=== PATIENT | male | born 1985 | race Caucasian/White ===

== ENCOUNTER 2020-10-01 11:40 | Emergency (ER) | payer SELFPAY ==
[2020-10-01 12:13] LABS: #Eosinphils 0.4 thou/uL (0.0-0.7); #Lymphocytes 1.1 thou/uL (1.20-3.40); #Monocytes 0.6 thou/uL (0.11-0.59); #Neutrophils 6.4 thou/uL (1.40-6.50); %Basophils 0.2 % (0.0-1.0); %Eosinophils 4.9 % (0.0-10.0); %Lymphocytes 13.2 % (21.0-51.0); %Monocytes 7.2 % (0.0-10.0); %Neutrophils 74.6 % (42.0-75.0); Hemoglobin 10.7 g/dL (14.0-18.0); Mean Corpuscular HGB CONC 32.6 g/dL (32.0-36.0); Mean Corpuscular Hemoglobin 26.7 pg (27.0-31.0); Mean Corpuscular Volume 81.8 fL (78.0-98.0); Mean Platelet Volume 7.8 fL (7.4-10.4); Platelet Count 354 thou/uL (130-400); RBC Distribution Width 15.4 % (11.5-14.5); Red Blood Cell (RBC) Count 4.01 mill/uL (4.70-6.10); White Blood Cell (WBC) Count 8.6 thou/uL (4.8-10.8)
--- NOTE | 2020-10-01 12:13 | RAD ---
EXAM: Single view of the chest HISTORY: Chest pain COMPARISON: None FINDINGS: Single view of the chest shows a normal sized cardiomediastinal silhouette. There is no petrona dence of consolidation, mass, or pleural effusion. There is remote right lateral rib fracture. A healed left clavicle fracture is seen. IMPRESSION: No evidence of acute cardiopulmonary disease
--- NOTE | 2020-10-01 12:20 | CT ---
CT HEAD WITHOUT IV CONTRAST COMPARISON: None HISTORY: Injury after fall. Wound on head reportedly more remote in origin. TECHNIQUE: Axial CT imaging at 5 mm intervals from vertex through skull base without contrast FINDINGS: Mild cerebral and cerebellar volume loss more than expected for patient's age. There is no evidence o f an acute infarction, hemorrhage, mass effect, or midline shift. The ventricular system is normal in size, shape, and position. Skull base has a normal CT appearance. Visualized paranasal sinuses are clear. Osseous structures appear intact.Mild scalp soft tissue swelling is seen right anterolateral frontal region as well as in the posterior parietal region. IMPRESSION: 1. No acute intracranial abnormality demonstrated. 2. Scalp soft tissue swelling right anterolateral frontal region and biparietal region. 3. Mild cerebral and cerebellar volume loss more than expected for patient's age.
--- NOTE | 2020-10-01 12:24 | CT ---
CT CERVICAL SPINE NONCONTRAST: DATE: 10/01/2020 HISTORY: cervical trauma: 35-year-old male status post fall. FINDINGS: There are no jumped or perched facets. There is no evidence of acute fracture. The vertebral body hei ghts are maintained. There is no prevertebral soft tissue swelling. Ankylosis of the vertebral bodies and posterior elements including facet joints and spinous processes, of C3 and C4. Moderate de generative disc disease at C2-3. Severe degenerative disc disease at C4-5, with severe central spinal canal stenosis and severe right and moderate to severe left neural foraminal stenosis. IMPRESSION: 1. No evidence of acute fracture or acute traumatic subluxation. 2. 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 3. Due to the immobility at C3-4, there is advanced degenerative disc disease at levels superior and inferior to it, (C2-3 and especially C4-5 where there is severe central and neural foraminal stenosis).
[2020-10-01 12:50] LABS: Acetaminophen Less than 6.0 mcg/mL (10.0-30.0); Alcohol Less than 10 mg/dL (Less than 10); Salicylate Less than 8.0 mg/dL (15.0-30.0)
[2020-10-01 12:52] LABS: ALT (SGPT) 16 U/L (8-55); AST (SGOT) 14 U/L (5-34); Albumin 3.9 g/dL (3.5-5.0); Alkaline Phosphatase 82 U/L (40-110); Anion Gap 12 mmol/L (10-20); BUN (Urea Nitrogen) 22 mg/dL (8.9-20.6); Bilirubin, Total 0.2 mg/dL (0.2-1.2); Calc. Creatinine Clearance 0 mL/min (70-130); Calcium 8.6 mg/dL (7.8-10.44); Carbon Dioxide 25 mmol/L (22-29); Chloride 107 mmol/L (98-107); Globulin 2.9 g/dL (2.4-3.5); Glucose 93 mg/dL (70-105); Potassium 3.9 mmol/L (3.5-5.1); Protein, Total 6.8 g/dL (6.0-8.3); Sodium 140 mmol/L (136-145)
[2020-10-01 13:19] LABS: Bilirubin Negative (Negative); Blood, Urine Negative (Negative); Clarity Clear (Clear); Glucose, Urine (Dipstick) Normal (Negative); Ketone, Urine Negative (Negative); Leukocyte Negative Leu/uL (Negative); Nitrite Negative (Negative); Protein, Urine (Dipstick) Negative (Neg-Trace); Specific Gravity, Urine 1.025 (1.002-1.036); Urobilinogen Normal mg/dL (Less than 2)
[2020-10-01 13:28] LABS: Amphetamine Not Detected (NotDetected); Barbiturates Screen Not Detected (NotDetected); Cocaine Metabolite Screen Not Detected (NotDetected); Medtox Control Line Valid? VALID (VALID); Medtox Reader # READER 1; Methadone Not Detected (NotDetected); Methamphetamine Not Detected (NotDetected); Opiate Screen Not Detected (NotDetected); Oxycodone Screen Not Detected (NotDetected); Phencyclidine (PCP) Not Detected (NotDetected); THC/Cannabinoid Screen Not Detected (NotDetected); Tricyclic Screen Not Detected (NotDetected)
[2020-10-02 12:38] LABS: Benzodiazepine Screen Detected (NotDetected)
== END 2020-10-01 15:08 | disposition home or self-care (01) ==
LOC: ERS 11:40
DX: F09 Unspecified mental disorder due to known physiological condition (principal); F10.10 Alcohol abuse, uncomplicated; S00.01XA Abrasion of scalp, initial encounter; R29.704 NIHSS score 4; F17.210 Nicotine dependence, cigarettes, uncomplicated; W18.30XA Fall on same level, unspecified, initial encounter
CPT/HCPCS: 36415; 70450; 71045; 72125; 80053; 80306; 80307; 81003; 84484; 85025; 93005

== ENCOUNTER 2020-10-04 05:19 | Emergency (ER) | payer SELFPAY | END 2020-10-04 05:49 | LOC: ERS 05:19 | DX: Z02.89 Encounter for other administrative examinations (principal); F17.210 Nicotine dependence, cigarettes, uncomplicated | CPT/HCPCS: 99283 ==